=== PATIENT | male | born 1995 | race Two or more races ===

== ENCOUNTER → 2017-02-19 | Outpatient (REF) | payer OTHER | LOC: M SFHCLERA 19:05 | PROVIDERS: ATTEND Nurse Practitioner Family | DX: L60.0 Ingrowing nail (principal) ==

== ENCOUNTER → 2018-02-26 | Outpatient (REF) | payer OTHER | LOC: M SFHCLERA 13:57 | DX: R50.9 Fever, unspecified (principal) ==

== ENCOUNTER 2021-02-08 17:22 | Emergency (ER) | payer BC, OTHER ==
[~2021-02-08] VITALS: Ht 172.7 cm; Wt 100.1 kg
[2021-02-08 17:22] VITALS: BP 159/98
[2021-02-08] MEDS ORDERED: IBUP-1022 PO (17:41)
== END 2021-02-08 19:58 | disposition home or self-care (01) ==
LOC: M ED 17:22
DX: M25.561 Pain in right knee (principal)

== ENCOUNTER → 2021-10-13 | Outpatient (REF) | payer OTHER, BC ==
[~2021-10-13] MED LIST: IBUP-1022 PO
== END ==
LOC: M LAB REF 21:22
PROVIDERS: ATTEND Physician Assistant Medical
DX: R50.9 Fever, unspecified (principal)

== ENCOUNTER → 2022-09-07 | Outpatient (REF) | payer OTHER, BC ==
[2022-09-07 19:15] LABS: CLOSTRIDIUM DIFFICILE PCR NEGATIVE (NEGATIVE)
== END ==
LOC: M LAB REF 17:31
PROVIDERS: ATTEND Physician Assistant
DX: R19.7 Diarrhea, unspecified (principal)

== ENCOUNTER → 2023-08-07 | Outpatient (REF) | payer MEDICAID ==
[2023-08-07 13:19] LABS: SEMEN APPEARANCE OPAQUE (OPAQUE); SEMEN VISCOSITY LIQUID (LIQUID); SEMEN VOLUME 4.2 ml (2.0-5.0)
[2023-08-07 13:20] LABS: SPERM CONCENTRATION 27.2 M/ml (>=15.0); WBC CONCENTRATION >1 M/ml (<=1 M/ml)
== END ==
LOC: M SFHCWAGY 11:40
PROVIDERS: ATTEND Obstetrics & Gynecology
DX: N46.9 Male infertility, unspecified (principal)

== ENCOUNTER → 2024-05-20 | Outpatient (REF) | LOC: M EMP 08:21 | PROVIDERS: ATTEND Family Medicine | DX: R09.89 Other specified symptoms and signs involving the circulatory and respiratory systems (principal) ==

== ENCOUNTER → 2024-06-05 | Outpatient (REF) | LOC: M EMP 12:30 | PROVIDERS: ATTEND Family Medicine | DX: Z11.52 Encounter for screening for COVID-19 (principal) ==

== ENCOUNTER 2025-01-21 12:07 | Emergency (ER) | payer OTHER, SELFPAY ==
[~2025-01-21] VITALS: Ht 175.3 cm; Wt 96.9 kg
[2025-01-21 13:17] LABS: BASO # 0.1 10^3/uL (0.0-0.2); BASO % 0.3 % (0.0-1.0); EOS # 0.0 10^3/uL (0.0-0.5); EOS % 0.1 % (0.0-3.0); LYMPH # 1.0 10^3/uL (1.5-5.0); LYMPH % 6.5 % (24.0-44.0); MONO # 0.4 10^3/uL (0.0-0.8); MONO % 2.8 % (2.0-8.0); NEUTROPHILS # 13.1 10^3/uL (1.5-8.5); NEUTROPHILS % 90.0 % (36.0-66.0); PLATELET COUNT, AUTOMATED 310 10^3/uL (150-450)
[2025-01-21 13:44] LABS: ALT/SGPT 62 U/L (7.0-40); AST/SGOT 30 U/L (<34); CALCIUM LEVEL 9.8 MG/DL (8.5-10.1); CARBON DIOXIDE LEVEL 25 MMOL/L (20-31); CHLORIDE LEVEL 109 MMOL/L (98-107); CREATININE FOR GFR 0.78 MG/DL (0.70-1.30); GLOMERULAR FILTRATION RATE > 90.0 (>60); POTASSIUM SERUM 4.2 MMOL/L (3.5-5.1); SODIUM LEVEL 146 MMOL/L (136-145)
[2025-01-21 14:10] VITALS: BP 158/106; TEMP 97; O2SAT 100
== END 2025-01-21 15:24 | disposition left against medical advice (07) ==
LOC: M ED 12:07
DX: Z53.21 Procedure and treatment not carried out due to patient leaving prior to being seen by health care provider (principal)